=== PATIENT | male | born 1980 | race Caucasian/White ===

== ENCOUNTER 2018-11-13 12:35 | Day surgery (SDC) | payer OTHER ==
[2015-12-15 08:22] VITALS: BMI 36.9
[2018-11-13] MEDS ORDERED: Lidocaine PF 2% (5 ml) Inj (For Cardiac Arrhy) ONE (13:31)
[2018-11-13] MEDS ORDERED: Iodixanol 320 MG/ML 100 ML BOTTLE IV ONE (13:31)
[2018-11-13 13:32] LABS: BASO # 0.03 K/mm3 (0.0-2.0); BASO % 0.5 % (0.0-3.0); EOS # 0.1 (0.0-0.7); EOS % 2.4 % (1.5-5.0); HEMOGLOBIN 12.3 g/dL (14.0-18.0); LYMPH # 2.3 (1.2-3.4); LYMPH % 40.7 % (22.0-35.0); MEAN CELL VOLUME 76.1 fl (80.0-105.0); MEAN CORPUSCULAR HEMOGLOBIN 23.7 pg (25.0-35.0); MEAN CORPUSCULAR HGB CONC 31.2 g/dl (31.0-37.0); MEAN PLATELET VOLUME 9.6 fl (7.0-11.0); MONO # 0.4 (0.1-0.6); MONO % 6.8 % (1.0-6.0); RBC 5.18 10^6/uL (3.5-6.1); RED CELL DISTRIBUTION WIDTH 15.7 % (11.5-14.5); WHITE BLOOD COUNT 5.8 10^3/uL (4.5-11.0)
[2018-11-13] MEDS ORDERED: Nitroglycerin 50mg in D5W 50 MG/250 ML BOTTLE IV ONE (13:32)
[2018-11-13] MEDS ORDERED: Iodixanol 320 MG/ML 200 ML BOTTLE IV ONE (13:32)
[2018-11-13 13:39] LABS: INR 1.17; PARTIAL THROMBOPLASTIN TIME 32.6 Seconds (26.9-38.3)
[2018-11-13 13:41] LABS: BLOOD UREA NITROGEN 19 mg/dL (7-21); CALCIUM 9.1 mg/dL (8.4-10.5); GFR NON-AFRICAN AMERICAN > 60
[2018-11-13] MEDS ORDERED: Midazolam 2 MG/2 ML VIAL ONE ×2 (15:10→15:20)
[2018-11-13] MEDS ORDERED: Oxycodone/Acetaminophen 5/325 mg Tab PO PRN (16:16)
[2018-11-13] MEDS ORDERED: Sodium Chloride 0.45% 1,000 ML IV SCH (16:30)
[2018-11-13 16:40] VITALS: RESP 18; TEMP 97.5; O2SAT 97
[2018-11-13 17:25] VITALS: PULSE 77
[2018-11-13 18:17] VITALS: BP 119/72
--- NOTE | 2018-11-13 19:32 | VASCULAR ---
Date of service: 11/13/2018 PROCEDURE: 1. Left iliac venogram 2. IVC gram 3. Intravascular ultrasound left common iliac vein HISTORY: Previous left lower extremity DVT in 2018. Persistent significant left lower extremity swelling. Evaluate for left iliac venous occlusive disease PHYSICIAN(S): Tomás Sharma M.D. TECHNIQUE: The relative risks and indications of the procedure were explained to the patient and his and consent obtained. The patient was hydrated prior to the procedure and the appropriate labs drawn. The patient was placed supine on the arteriogram table and the left groin prepped and draped usual sterile fashion. Conscious sedation monitoring were provided throughout the procedure by a nurse Under ultrasound guidance, the left common femoral vein was punctured with a micropuncture set. A 5 [place] sheath was placed. A 5 [place] flush catheter was placed in the distal left external iliac vein and multiple DSA left iliac venograms were performed. The catheter was placed in the IVC and IVC gram performed. A 0.014 guidewire was placed. Next intravascular ultrasound left common iliac vein performed. No significantly left iliac venous system was appreciated. The sheath was removed hemostasis obtained. The patient tolerated the procedure well. FINDINGS: The left iliac venous system in visualized left common femoral vein are patent and normal. There is mild compression of the left common iliac vein. This does not appear significant by angiographic or intravascular ultrasound criteria. Angioplasty and stent placement left common iliac vein was not performed. IMPRESSION: 1.Normal left iliac vein venogram and intravascular ultrasound. No evidence of significant narrowing. 2. Normal IVC gram.
== END 2018-11-13 18:16 | disposition home or self-care (01) ==
LOC: SDS 12:35
PROVIDERS: ATTEND Radiology Vascular & Interventional Radiology
DX: M79.89 Other specified soft tissue disorders (principal); Z86.718 Personal history of other venous thrombosis and embolism
CPT/HCPCS: 36010; 36415; 37252; 75820; 75825; 80048; 85025; 85610; 85730; 99152; C1753; C1760; C1769 ×3; C1887; C1894; J1644; J2250; J2405; J3010; J7030; Q9966; Q9967